=== PATIENT | female | born 1955 | race Two or more races ===

== ENCOUNTER 2024-05-26 12:07 | Emergency (ER) | payer OTHER ==
[~2024-05-26] VITALS: Ht 157.5 cm; Wt 53.1 kg
[2024-05-26] MEDS ORDERED: CARVEDILOL ER40 MG PO (12:24)
[2024-05-26] MEDS ORDERED: FAMOtidine 10 MG/ML (4ML VIAL) IV PUSH ONE (12:30)
[2024-05-26] MEDS ORDERED: ONDANSETRON HCL 2 MG/ML VIAL IM ONE (12:30)
[2024-05-26] MEDS ORDERED: DICYCLOMINE HCL 20 MG TABLET PO ONE (12:30)
[2024-05-26 13:50] LABS: HEMATOCRIT 39.3 % (36.0-45.00); HEMOGLOBIN 13.8 g/dL (12.0-15.00); MEAN CELL VOLUME 98.9 fL (80.00-100.00); MEAN CORPUSCULAR HEMOGLOBIN 34.8 pg (27.00-32.0); MEAN CORPUSCULAR HGB CONC 35.2 g/dl (32.0-36.0); PLATELET COUNT 134 K/uL (150-450); RED BLOOD COUNT 3.98 M/uL (4.00-6.00); RED CELL DISTRIBUTION WIDTH 13.2 % (11.5-14.5)
[2024-05-26 14:19] LABS: ALBUMIN 3.3 gm/dL (3.4-5.0); BILIRUBIN TOTAL 0.54 mg/dL (0.3-1.2); CALCIUM 8.8 mg/dL (8.5-10.1); CREATININE SERUM 1.19 mg/dL (0.55-1.02); GFR 44.97; GLOBULINA 4.4 G/DL (2.4-3.5); POTASSIUM 4.1 mEq/L (3.5-5.1); TOTAL PROTEIN 7.7 gm/dL (6.4-8.2)
[2024-05-26 16:15] LABS: URINE APPEARANCE Clear; URINE BILIRRUBIN Negative (NEGATIVE); URINE BLOOD Negative; URINE COLOR Yellow; URINE GLUCOSE Negative (NEGATIVE); URINE KETONE Negative (NEGATIVE); URINE LEUKOCYTE Negative; URINE NITRATE Negative; URINE PROTEIN Negative (NEGATIVE)
[2024-05-26 16:20] LABS: URINE BACTERIA 166.4 uL (0.0-1933); URINE EPITHELIAL CELLS 10.7 uL (0.0-38.8); URINE WBC 5.6 uL (0.0-23.2)
== END 2024-05-26 20:43 | disposition home or self-care (01) ==
LOC: ER 12:07
PROVIDERS: General Practice
DX: R11.2 Nausea with vomiting, unspecified (principal); Z88.6 Allergy status to analgesic agent; Z20.822 Contact with and (suspected) exposure to COVID-19
CPT/HCPCS: 36415; 71045; 74176; 93005; 96365; 99284; J2405; J3490